=== PATIENT | male | born 1970 | race Caucasian/White ===

== ENCOUNTER 2017-01-24 09:30 | Inpatient (IN) | payer BC ==
[2017-02-06] MEDS ORDERED: FAMOTIDINE 20MG TABLET PO ONE (06:00)
[2017-02-06] MEDS ORDERED: CELECOXIB 100 MG CAPSULE PO ONE (06:00)
[2017-02-06] MEDS ORDERED: CEFAZOLIN 2 Gram 2 GM/50 ML BAG IVPB ONE (06:00)
[2017-02-06] MEDS ORDERED: ACETAMINOPHEN 1,000 MG/100 ML BTL IV ONE (06:00)
[2017-02-06] MEDS ORDERED: METOCLOPRAMIDE 10 MG TABLET PO ONE (06:00)
[2017-02-06] MEDS ORDERED: MECLIZINE 25 MG TABLET PO ONE (06:00)
[2017-02-06] MEDS ORDERED: TRAMADOL HCL 50 MG TABLET PO PRN ×2 (09:45)
[2017-02-06] MEDS ORDERED: DIPHENHYDRAMINE HCL 25 MG CAPSULE PO PRN (09:45)
[2017-02-06] MEDS ORDERED: OXYCODONE HCL 5 MG TABLET PO PRN (09:45)
[2017-02-06] MEDS ORDERED: ONDANSETRON HCL IV 4 MG/2 ML VIAL IVP PRN (09:45)
[2017-02-06] MEDS ORDERED: HYDROMORPHONE HCL 1 MG/ML CPJ IVP PRN (09:45)
[2017-02-06] MEDS ORDERED: METOCLOPRAMIDE HCL 10 MG/2 ML VIAL IVP PRN (09:45)
[2017-02-06] MEDS ORDERED: MAGNESIUM HYDROXIDE 30 ML UDC PO PRN (09:45)
[2017-02-06] MEDS ORDERED: AL HYDROX/MAG HYDROX 30ML UD PO PRN (09:45)
[2017-02-06] MEDS ORDERED: ZOLPIDEM TARTRATE 5 MG TABLET PO PRN (09:45)
[2017-02-06] MEDS ORDERED: SENNOSIDES/DOCUSATE SODIUM UD CAPSULE PO PRN (09:45)
[2017-02-06] MEDS: RINGERS SOLUTION,LACTATED 1,000 ML IV SCH (10:37)
[2017-02-06] MEDS ORDERED: TRANEXAMIC ACID 1,000 MG in 0.9 % SODIUM CHLORIDE 100ML 100 ML IVPB ONE (11:00)
[2017-02-06] MEDS: OXYCODONE HCL 5 MG TABLET PO PRN ×2 (11:39→20:22)
[2017-02-06] MEDS ORDERED: BUPIVACAINE LIPOSOME 266MG/20ML VIAL IV ONE (12:35)
[2017-02-06] MEDS ORDERED: BUPIVACAINE 0.25% W/EPI MPF 30ML VIAL IVP ONE (12:35)
[2017-02-06] MEDS ORDERED: HYDROMORPHONE HCL 2 MG/ML VIAL IV ONE ×2 (14:00)
[2017-02-06] MEDS ORDERED: PROPOFOL 10 MG/ML VIAL IV ONE (14:00)
[2017-02-06] MEDS ORDERED: LIDOCAINE 2% MDV (20MG/ML) 20ML VIAL IV ONE (14:00)
[2017-02-06] MEDS ORDERED: SUFENTANIL CITRATE 50 MCG/ML AMPUL IV ONE (14:00)
[2017-02-06] MEDS ORDERED: KETOROLAC 30 MG/ML VIAL IVP ONE (14:00)
[2017-02-06] MEDS ORDERED: ONDANSETRON HCL IV 4 MG/2 ML VIAL IVP ONE (14:00)
[2017-02-06] MEDS ORDERED: FENTANYL PF 100MCG/2ML VIAL IV ONE (14:00)
[2017-02-06] MEDS ORDERED: MIDAZOLAM HCL 2MG/2ML VIAL IV ONE (14:00)
[2017-02-06] MEDS ORDERED: FENTANYL PF 0.25MG/5ML AMPUL IV ONE (14:00)
[2017-02-06] MEDS ORDERED: SEVOFLURANE 250 ML INH ONE (14:00)
[2017-02-06] MEDS ORDERED: ROCURONIUM BROMIDE 50MG/5ML VIAL IV ONE (14:00)
--- NOTE | 2017-02-06 14:40 | Operative Note ---
DATE OF SURGERY: 02/06/2017 Surgeon: Lefty Toro DO PREOPERATIVE DIAGNOSIS: Primary osteoarthritis of the left knee. POSTOPERATIVE DIAGNOSIS: Primary osteoarthritis of the left knee. OPERATION: Left total knee arthroplasty. DESCRIPTION OF PROCEDURE: This 46-year-old male was taken to the operating room and placed in the supine position on the operating room table. Attempt at spinal anesthesia was performed but the department of anesthesia was unsuccessful and after general anesthetic had been administered, the left lower extremity was elevated. It was prepped with Hibiclens and draped in the usual sterile fashion. Exsanguinated and the tourniquet inflated to 300 mmHg. All scrub personnel wore personal isolation suits. An anterior longitudinal midline incision was made followed by a medial parapatellar arthrotomy incision. An intracondylar drill hole was made for the intramedullary alignment rashid, and 6-degree valgus 11 mm cut was made in the distal femur because of the patient's flexion contracture of approximately 10 degrees. The wafer of bone was removed. Sizing jig was affixed and a size 75 was seen to be the appropriate size. The 4-in-1 cutting block was then pinned in 3 degrees of external rotation and appropriate cuts were made. The wafers of bone were removed. We then directed our attention to the proximal tibia, and an extramedullary alignment guide was used to cut the proximal tibia referencing a 10 mm cut off the lateral tibial plateau. However, it was necessary for us to cut an additional 4 mm of bone due to the severe bone loss medially. This was removed. Remnants of the menisci and osteophytes were removed from the posterior aspect of the knee. The tibia was sized to a size 83, and a stem punch was used. We then thoroughly debrided the knee removing all pieces of bone and soft tissue. The patella was then cut and restored to anatomic height with a 37 x 8.6 mm patella. The trial components were then placed, and a 12 mm bearing was seen to be the appropriate size, which gave us excellent stability of the joint throughout the range of motion. The trial components were all then removed and the wound again copiously irrigated with pulse lavage, lactated Ringer solution. Exparel was injected into the posterior, medial, and lateral corners of the joint. All bony surfaces were dried. All components were cemented into place, and excess cement removed after the insertion of each component. Initially the tibial baseplate was placed followed by the tibial bearing, femoral component, and finally the patella. Once the cement had hardened, the knee was again taken through range of motion with excellent stability. The remainder of the Exparel was injected into periosteum and joint capsule of the proximal tibia and distal femur. A drain was placed through a separate stab incision. The arthrotomy incision was closed with a #2 Vicryl. The subcutaneous tissue was closed with 0 Vicryl and the skin was stapled. Polar Care was applied. The patient was taken to the recovery room in satisfactory condition. GROSS PATHOLOGY: This patient demonstrated very severe osteoarthritis, tricompartmental full-thickness defect was present. Significant amount of bone loss present on the medial tibial plateau. Large osteophytes removed as well. Final components inserted were a [employer] size 75 cruciate retaining femoral component, a size 83 tibial baseplate, a 12 mm anterior stabilized D1 bearing, and a 37 x 8.6 mm patella was used. ARNEL
[2017-02-06] MEDS: ACETAMINOPHEN 1,000 MG/100 ML BTL IV SCH ×2 (14:45→20:06)
--- NOTE | 2017-02-06 14:46 | Rehab Evaluation ---
Patient Information - Patient Information Diagnosis: L Knee OA Ordered Treatment: PT Evaluate and Treat Status: Initial Evaluation Surgery: Yes (L TKA) Date of Surgery: 02/06/17 History: Detail (Pt. reports history of bilateral knee arthritis. Pt. reports that he plans to have the right knee replaced in ~6 weeks time.) Past Med/Willian Hx Detail: Detail (Pt. has underwent 5 scopes on his right knee and 4 on the left. Pt. has neuropathy and HTN.) Past Medical/Surgical Hx: PAST MEDICAL/SURGICAL HISTORY Past Surgical History knee surgery PMH - Respiratory Hx Respiratory Disorders No PMH - Cardiovascular Hx Cardiovascular Disorders Yes Hx Hypertension Yes Exercise Tolerance Good PMH - Neuro Hx Neurological Disorders Yes Hx Neuropathy Yes: feet and legs PMH - GI Hx Gastrointestinal Disorders Yes Hx Weight Loss/Weight Gain Yes: 15 lb gain in last year Hx Cirrhosis Yes: from drinking years ago LVT back to normal PMH - Hx Genitourinary Disorders No PMH - Endocrine Hx Endocrine Disorders No PMH - Musculoskeletal Hx Musculoskeletal Disorders Yes Hx Arthritis Yes PMH - Psych Hx Psychiatric Problems No PMH - Hematology/Oncology Hx Hematology/Oncology No Disorders Premorbid Status: Detail (Slowly progressive worsening of sx.) Social History: Detail (Pt. lives in a two story home with the bedroom and bathroom located on the second floor. The pt. lives with his and kids who are able to provide support. The pt. has a single point cane and standard walker. The pt. has a standard tub, 5-6 steps leading into the home with hand rail on right side when ascending. 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 Pt. was left supine with call light available, B IPC, cryo LLE, CPM attached. Nursing was notified of pt.'s status.) Subjective Information - Subjective Information Per Patient (Pt. reported 7/10 pain at start of tx. Pt. denied nausea, SOB, and he could feel/move his feet.) Objective Data - Pain Pain Present: Yes Pain Intensity: 7 Pain Scale Used: Numeric (1 - 10) - Mental Status Patient Orientation: Oriented x3 - Visual Perception Appears within normal limits for therapeutic activities - ROM Other (CPM set at -10 degrees and 50 degrees. RLE was WFL all planes of movement. BUE WFL all planes of movement.) - Strength/Tone Within normal limits, Other (BUE 5/5 grossly. Left knee not tested for standardized strength grade due to surgery. RLE was 5/5 grossly, with increased pain during transfer secondary to arthritis.) - Coordination Appears within normal limits for therapeutic activities - Bed Mobility Needs Assist (Pt. required min asssit x1 with SLR attempt for LLE, otherwise I with bed mobility.) - Transfers Independent (Pt. was independent with sit to stand and stand to sit transfer.) - Balance Balance Sitting: Good Balance Standing: Fair (Pt. unable to bear more than 50% body weight onto the operative LE.) - Sensation Intact - Gait Detail (Not assessed.) - ADL's/IADL's Detail (Not assessed.) - Special Tests No Therapy Assessment - Therapy Assessment Detail (Pt. is expected to complete all inpatient PT goals and transition to home environment within 1-2 days.) Patient Education - Patient Education Teaching Topic: Disease Process, Equipment Use Response: Return Demonstration Teaching Method: Discussion Teaching Recipient: Patient Barriers To Learning: None Problem List - Problem List Physical Therapy Problem List: Detail (1) LE weakness 2) LE ROM restriction 3) Balance impairment 4) Assistance required with bed mobility) Goals - Goals Physical Therapy Goals: 1) Pt. will independently ambulate with standard walker for household distances without gait deviation. 2) Pt. will ascend and descend 5 steps independently with or without an AD. 3) Pt. will be independent with HEP. 4) Pt. will verbalize understanding of precautions. 5) Pt. will be independent with bed mobility and transfers. Prognosis - Prognosis Good (Pt. is expected to complete all inpatient PT goals and transition to OP PT.) Plan - Plan Physical Therapy Plan: Pt. will be seen 1-2x per day for inpatient therapy until all PT goals met for safe D/C to home environment.
[2017-02-06] MEDS: FONDAPARINUX 2.5 MG/0.5 ML SYR SQ SCH (16:31)
[2017-02-06] MEDS: CEFAZOLIN 2 Gram 2 GM/50 ML BAG IVPB SCH ×2 (16:32→22:27)
[2017-02-06] MEDS: LYRICA 75 MG PO SCH ×3 (17:18→21:51)
[2017-02-07] MEDS: ACETAMINOPHEN 1,000 MG/100 ML BTL IV SCH (00:50)
[2017-02-07] MEDS ORDERED: NALOXONE 0.4 MG/1 ML VIAL IVP ONE ×2 (01:30→06:51)
[2017-02-07 03:57] LABS: ALB/GLOB RATIO 1.4 (1.1-1.8); ALBUMIN 3.5 g/dL (4.0-5.0); ALKALINE PHOSPHATASE 73 U/L (40-129); ALT/SGPT 14 U/L (<41); AST/SGOT 25 U/L (10.0-50.0); BLOOD UREA NITROGEN 12 mg/dL (6-20); CREATININE 0.6 mg/dL (0.7-1.2); EST GLOMERULAR FILTRATION RATE > 60 mL/min; GLUCOSE,RANDOM 107 mg/dL (74-109)
[2017-02-07] MEDS: RINGERS SOLUTION,LACTATED 1,000 ML IV SCH (06:33)
[2017-02-07] MEDS: LYRICA 75 MG PO SCH ×3 (06:34→17:07)
[2017-02-07] MEDS: CEFAZOLIN 2 Gram 2 GM/50 ML BAG IVPB SCH (09:42)
[2017-02-07] MEDS ORDERED: HYDROCODONE/APAP 7.5/325MG TABLET PO PRN ×2 (09:45)
[2017-02-07] MEDS ORDERED: ACETAMINOPHEN 325 MG TAB PO PRN (09:45)
[2017-02-07] MEDS ORDERED: OXYCODONE/APAP 7.5MG/325MG TABLET PO PRN ×2 (09:45)
[2017-02-07] MEDS ORDERED: CELECOXIB 100 MG CAPSULE PO SCH (10:00)
[2017-02-07] MEDS ORDERED: ZYRTEC 10 MG PO SCH (10:00)
[2017-02-07] MEDS ORDERED: METOPROLOL TART 25 MG TABLET PO SCH (10:00)
--- NOTE | 2017-02-07 10:37 | Physical Therapy Tx Note ---
Physical Therapy Tx Note - Treatment Note Tolerated: Poor (Pt. declined PT services due to 10/10 pain. Pt. wishes to be seen during P.M. session for gait training.) Total Time Spent With Patient: 5 Physical Therapy Problem List: Detail (1) LE weakness 2) LE ROM restriction 3) Balance impairment 4) Assistance required with bed mobility) Physical Therapy Goals: 1) Pt. will independently ambulate with standard walker for household distances without gait deviation. 2) Pt. will ascend and descend 5 steps independently with or without an AD. 3) Pt. will be independent with HEP. 4) Pt. will verbalize understanding of precautions. 5) Pt. will be independent with bed mobility and transfers. Physical Therapy Plan: Pt. will be seen 1-2x per day for inpatient therapy until all PT goals met for safe D/C to home environment.
--- NOTE | 2017-02-07 10:49 | Rehab Evaluation ---
Patient Information - Patient Information Diagnosis: L Knee OA Ordered Treatment: OT Evaluate and Treat Status: Initial Evaluation Surgery: Yes (L TKA) Date of Surgery: 02/06/17 History: Detail (Pt. reports history of bilateral knee arthritis. Pt. reports that he plans to have the right knee replaced in ~6 weeks time.) Past Med/Willian Hx Detail: Detail (Pt. has underwent 5 scopes on his right knee and 4 on the left. Pt. has neuropathy and HTN.) Past Medical/Surgical Hx: PAST MEDICAL/SURGICAL HISTORY Past Surgical History knee surgery PMH - Respiratory Hx Respiratory Disorders No PMH - Cardiovascular Hx Cardiovascular Disorders Yes Hx Hypertension Yes Exercise Tolerance Good PMH - Neuro Hx Neurological Disorders Yes Hx Neuropathy Yes: feet and legs PMH - GI Hx Gastrointestinal Disorders Yes Hx Weight Loss/Weight Gain Yes: 15 lb gain in last year Hx Cirrhosis Yes: from drinking years ago LVT back to normal PMH - Hx Genitourinary Disorders No PMH - Endocrine Hx Endocrine Disorders No PMH - Musculoskeletal Hx Musculoskeletal Disorders Yes Hx Arthritis Yes PMH - Psych Hx Psychiatric Problems No PMH - Hematology/Oncology Hx Hematology/Oncology No Disorders Premorbid Status: Detail (Slowly progressive worsening of sx. Pt independent w/ ADLs [employer].) Social History: Detail (Pt. lives in a two story home with the bedroom and bathroom located on the second floor. The pt. lives with his and kids who are able to provide support. The pt. has a single point cane and standard walker. The pt. has a standard tub, 5-6 steps leading into the home with hand rail on right side when ascending. 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 Unable to give birthdate ( said it was [birth year] and repeated this same date when prompted a second time), unable to give correct age, and when asked where he was, pt able to say "hospital" but thought he was in the "[facility].") - ROM Within normal limits (BUE's) - Strength/Tone Within normal limits (BUE's) - Coordination Appears within normal limits for therapeutic activities - ADL's/IADL's Detail (Discussed bathing/showering wrapping techniques to prevent water/soap saturation on incision for infection purposes. Discussed LB drsg techniques and equipment available to help with this if pt unable to reach feet at first at home. Techniques also discussed with pt's mother for reinforcement. Pt completed LB drsg w/ min A and v/c's for modified drsg technique. Pt states that if he needs help drsg while at home he will have his son help him.) Therapy Assessment - Therapy Assessment Detail (Pt not fully oriented due to self-medicating during the night. Asking for pain medication several times during evaluation. He has a good support system that is willing to assist patient with ADLs if needed. OT will continue to monitor pt during his stay here as well as his ADL status. Pt able to don pants w/ min A w/ modified technique.) Problem List - Problem List Physical Therapy Problem List: Detail (1) LE weakness 2) LE ROM restriction 3) Balance impairment 4) Assistance required with bed mobility) Goals - Goals Physical Therapy Goals: 1) Pt. will independently ambulate with standard walker for household distances without gait deviation. 2) Pt. will ascend and descend 5 steps independently with or without an AD. 3) Pt. will be independent with HEP. 4) Pt. will verbalize understanding of precautions. 5) Pt. will be independent with bed mobility and transfers. Prognosis - Prognosis Good Plan - Plan Physical Therapy Plan: Pt. will be seen 1-2x per day for inpatient therapy until all PT goals met for safe D/C to home environment. Occupational Therapy Plan: OT will continue to monitor patient and his ADL status. Anticipate that once pain is controlled, pt will not require further inpatient OT services. Pt will use family to assist if needed w/ ADLs vs use of equipment while at home.
--- NOTE | 2017-02-07 15:02 | Physical Therapy Tx Note ---
Physical Therapy Tx Note - Treatment Note Tolerated: Good (Pt. reported 7/10 pain at start and finish of tx. Pt. denied SOB, nausea.) Total Time Spent With Patient: 25 Physical Therapy Tx Note: Detail (Pt. ambulated with CGA for 80 feet using standard walker. Pt. was I with bed mobility, but required hooking of operative leg/use of UE to swing the operative leg to seated position due to inability to perform SLR. Pt. required verbal cueing to appropriately perform sit<->stand transfer, but expressed understanding following instruction. Pt. verbalized understanding of precautions and signs of infection/LE positioning in bed. Pt. ascended and descended 6 steps with front wheeled walker and CGA.) Physical Therapy Problem List: Detail (1) LE weakness 2) LE ROM restriction 3) Balance impairment 4) Assistance required with bed mobility) Physical Therapy Goals: 1) Pt. will independently ambulate with standard walker for household distances without gait deviation. 2) Pt. will ascend and descend 5 steps independently with or without an AD. 3) Pt. will be independent with HEP. 4) Pt. will verbalize understanding of precautions. 5) Pt. will be independent with bed mobility and transfers. Prognosis: Good (Pt. is appropriate for D/C from inpatient PT and return to ranch style home environment.) Physical Therapy Plan: Pt. is appropriate for D/C from inpatient PT given completion of all goals.
[2017-02-07] MEDS: FONDAPARINUX 2.5 MG/0.5 ML SYR SQ SCH (16:40)
[2017-02-07] MEDS ORDERED: FENTANYL 50MCG PATCH TD SCH (17:00)
--- NOTE | 2017-02-10 12:40 | Discharge Summary ---
DATE OF ADMISSION: 02/06/2017 DATE OF DISCHARGE: 02/07/2017 ADMITTING DIAGNOSIS: Osteoarthritis of the left knee. DISCHARGE DIAGNOSIS: Osteoarthritis of the left knee. OPERATIVE PROCEDURE: Elective left total knee arthroplasty. DESCRIPTION: This 46-year-old male was admitted to the hospital for elective total knee arthroplasty and tolerated the operative procedure well. We had somewhat of a difficult time controlling his pain following the surgery and apparently he was taking extra patches of fentanyl from his own personal stock in addition to being given the intravenous and oral pain medications here in the hospital. The patient was given Narcan and the symptoms were largely taken care of. Subsequently, he was started on Brandeis and seemed to be controlled satisfactorily on that medication. The patient will be discharged home with outpatient physical therapy. He will wear his MONTSE hose during the day and remove them at night. He was given a prescription for 80 Brandeis 7.5 mg/325 mg to take 1-2 every 6 hours as necessary for pain. He will take aspirin 325 mg b.i.d. Routine wound care instructions were given. He will follow up in the clinic in 2 weeks should he have any problems prior to being seen. He was instructed to call my office. ARNEL
== END 2017-02-07 16:45 | disposition home or self-care (01) | DRG 470 ==
LOC: MEDSURG 02-06 05:24
PROVIDERS: ADMIT Orthopaedic Surgery; ATTEND Orthopaedic Surgery
PROC: 0SRD0J9 Replacement of Left Knee Joint with Synthetic Substitute, Cemented, Open Approach (ICD-10-PCS; principal; 2017-02-06 07:30)
DX: M17.12 Unilateral primary osteoarthritis, left knee (principal); I10 Essential (primary) hypertension
CPT/HCPCS: 80053; 94760; 94762; 97116; 97165; J1170; J1885; J2310; J2405; J7120

== ENCOUNTER 2018-04-04 22:43 | Observation (INO) | payer BC ==
[2018-04-04] MEDS ORDERED: SODIUM CHLORIDE 0.9% 500 ML IV ONE (23:01)
--- NOTE | 2018-04-04 23:14 | Emergency Department Record ---
History of Present Illness - General Chief Complaint: Overdose Stated Complaint: ALTERED MENTAL STATE Time Seen by Provider: 04/04/18 22:52 Source: Patient, Family Mode of Arrival: Ambulatory Limitations: No limitations - History of Present Illness Initial Comments: The patient is here after being brought to the ER by his and brother due to being found at home intoxicated and possibly having taken extra meds. Per his he does drink alcohol in excess and she thinks he may have taken to many of his Lyrica and possibly Ambien. The patient was hallucinating at home prior to transport to the ER. There has been no reported suicidal or homicidal ideation, self harm actions, or any recent depression. Presently the patient denies any thoughts of hurting himself or taking any extra meds tonight. The patient does have a hx of prescription drug abuse per his . About a month ago the patient took to many Ambien and was confused and hallucinating similar to this episode. The patient's states she first noticed him confused about 4pm today. MD Complaint: Accidental overdose, Other Onset/Timin -: Hour(s) - Tal Coma Scale Eye Response: (4) Open spontaneously Motor Response: (6) Obeys commands Verbal Response: (4) Confused conversation [place] Total: 14 Substance Ingested: states she is unsure of what he took - Detail Context: Accidental Overdose: Was drinking then took pills Context: Intentional Overdose: Drug/ETOH problems Treatments Prior to Arrival: None - Related Data Home Medications Medication Instructions Recorded Confirmed Last Taken Ergocalciferol (Vitamin D2) 50,000 iu PO WE 04/04/18 04/04/18 Unknown [Vitamin D2] Metoprolol Tartrate 25 mg PO BID 04/04/18 04/04/18 Unknown Pregabalin [Lyrica] 150 mg PO BID 04/04/18 04/04/18 Unknown Zolpidem Tartrate 10 mg PO DAILY 04/04/18 04/04/18 Unknown Allergies Allergy/AdvReac Type Severity Reaction Status Date / Time ibuprofen [From Motrin] AdvReac NAUSEA AND Verified 04/04/18 22:52 VOMITING Travel Screening - Travel/Exposure Within Last 30 Days Have you traveled within the last 30 days?: No - Travel/Exposure Within Last Year Have you traveled outside the [place] in the last year?: No - Additonal Travel Details Have you been exposed to anyone with a communicable illness?: No - Travel Symptoms Symptom Screening: None Review of Systems Constitutional: Denies: Chills, Fever Eyes: Denies: Eye discharge ENT: Denies: Congestion Respiratory: Denies: Cough Cardiovascular: Denies: Arrhythmia, Chest pain Endocrine: Denies: Fatigue Gastrointestinal: Denies: Abdominal pain Genitourinary: Denies: Dysuria Musculoskeletal: Denies: Arthralgia Past Medical History - SOCIAL HISTORY Smoking Status: Never smoker Alcohol Use: Occasional Alcohol Use Comment: none today Drug Use: Occasional Drug Use Detail:: Prescription drug abuse - RESPIRATORY Hx Respiratory Disorders: No - CARDIOVASCULAR Hx Cardio Disorders: Yes Hx Hypertension: Yes - NEURO Hx Neuro Disorders: Yes Hx Neuropathy: Yes (feet and legs) - GI Hx GI Disorders: Yes Hx Wt Loss/Wt Gain: Yes (15 lb gain in last year) Hx Cirrhosis: Yes (from drinking years ago LVT back to normal) - Hx Genitourinary Disorders: No - ENDOCRINE Hx Endocrine Disorders: No - MUSCULOSKELETAL Hx Musculoskeletal Disorders: Yes Hx Arthritis: Yes - PSYCH Hx Psych Problems: No - HEMATOLOGY/ONCOLOGY Hx Hematology/Oncology Disorders: No Family Medical History Any Significant Family History?: No Hx Diabetes: Father Hx HTN: Father Hx Resp Disorders: Mother Physical Exam - General General Appearance: Alert, Cooperative, No acute distress (The patient is awake , cooperative, obviously intoxicated with mild slurred speech. ) - Head Head exam: Atraumatic, Normocephalic - Eye Eye exam: Normal appearance, PERRL, EOMI - ENT Throat exam: Normal inspection. negative: Tonsillar erythema, Tonsillar exudate - Neck Neck exam: Normal inspection, Full ROM. negative: Meningismus (The neck is very supple.), Tenderness - Respiratory Respiratory exam: Normal lung sounds bilaterally. negative: Respiratory distress - Cardiovascular Cardiovascular Exam: Regular rate, Normal rhythm, Normal heart sounds - GI/Abdominal GI/Abdominal exam: Soft, Normal bowel sounds. negative: Tenderness - Extremities Extremities exam: Normal inspection, Full ROM, Normal capillary refill. negative: Tenderness - Neurological Neurological exam: Alert, Normal gait. negative: Abnormal gait, Altered, Motor sensory deficit, Oriented X3 (The patient is confused as to the name of the hospital but is oriented to day, date, year, and his birthday.) - Psychiatric Psychiatric exam: negative: Anxious Course Vital Signs 04/04/18 22:45 Temperature 97.8 F Pulse Rate [ 103 H Pulse Ox Probe] Respiratory 24 Rate Blood Pressure 165/112 [Left Arm] Pulse Ox 95 - Reevaluation(s) Reevaluation #1: The patient is resting comfortably with no complaints. He denies any WILDER, visual changes, CP, SOB or AP. He is still intermittently confused and thinks he should be out deer hunting. Due to that fact we will order a head CT and EKG to be sure there are no toxic effects of medicines we could be missing presently. 04/05/18 00:11 Reevaluation #2: The patient is resting comfortably with no complaints. He denies any WILDER, CP, neck pain or visual changes. The patient is still confused about recent events and now is not able to tell me the name of the hospital but he is oriented to name, date and year. He has no signs of any infections due to the fact he has no fever, WILDER, neck pain or vomiting. I do believe the patient took to many of his Ambien and will need to be monitored overnight until it wears off. We will admit him to the hospital overnight for monitoring and observation. 04/05/18 00:46 Medical Decision Making - Data Complexity MDM Data: Labs Ordered and/or Reviewed, X-Ray Ordered and/or Reviewed, EKG Ordered and/or Reviewed - Lab Data Result diagrams: 04/04/18 23:00 04/04/18 23:00 - EKG Data -: EKG Interpreted by Me EKG: No Acute Changes, Normal EKG, Unchanged From Previous - Radiology Data Radiology results: Report reviewed (Head CT: Neg for any acute changes.), Image reviewed (CXR: Neg) Disposition Disposition: Admit Clinical Impression: Confusion caused by a drug Disposition: Still a Patient at [facility] Decision to Admit: Admit from ER Decision to Admit Date: 04/05/18 Decision to Admit Time: 00:50 Accepting Physician: Lay Time Discussed w/Accepting Physician: 00:50 Condition: (2) Stable Time of Disposition: 00:50 Quality - Quality Measures Quality Measures: N/A - Blood Pressure Screening View Details: Yes Does Patient Have Any of the Following: Active Dx of HTN Blood Pressure Classification: Hypertensive Reading Systolic Measurement: 166 Diastolic Measurement: 105 Screening for High Blood Pressure: Patient Exclusion, Hx of HTN [[id number]]
[2018-04-04 23:15] LABS: URINE APPEARANCE CLEAR; URINE BILIRUBIN NEGATIVE (NEGATIVE); URINE BLOOD NEGATIVE (NEGATIVE); URINE COLOR YELLOW; URINE GLUCOSE (UA) NEGATIVE (NEGATIVE); URINE KETONE NEGATIVE (NEGATIVE); URINE LEUKOCYTE ESTERASE NEGATIVE (NEGATIVE); URINE NITRITE NEGATIVE (NEGATIVE); URINE PROTEIN NEGATIVE (NEGATIVE); URINE UROBILINOGEN 0.2 E.U./dL (0.20 - 1.00)
[2018-04-04 23:18] LABS: AMPHETAMINE SCREEN URINE NOT DETECTED; BARBITURATE SCREEN URINE NOT DETECTED; BENZODIAZEPINE SCREEN URINE NOT DETECTED; COCAINE SCREEN URINE NOT DETECTED; METHADONE SCREEN URINE NOT DETECTED; METHAMPHETAMINE SCREEN NOT DETECTED; OPIATE SCREEN URINE NOT DETECTED; OXYCODONE SCREEN URINE NOT DETECTED; PHENCYCLIDINE SCREEN URINE NOT DETECTED; PROPOXYPHENE SCREEN URINE NOT DETECTED; THC SCREEN URINE NOT DETECTED; TRICYCLIC ANTIDEPRESSANT SCRN NOT DETECTED
[2018-04-04 23:20] LABS: BASO % 0.3 % (0-6); EOS % 0.5 % (0-6); GRAN % 67.5 % (47-80); LYMPH % 24.2 % (16-45); MEAN CELL VOLUME 84.2 fl (81-97); MEAN CORPUSCULAR HEMOGLOBIN 30.8 pg (27-33); MEAN CORPUSCULAR HGB CONC 36.6 g/dl (32-36); MEAN PLATELET VOLUME 11.3 fl (7.4-10.4); MONO % 7.5 % (0-9); PLATELET COUNT 144 K/uL (130-400); RED BLOOD COUNT 4.87 M/uL (4.40-5.70); RED CELL DISTRIBUTION WIDTH 14.1 % (11.5-14.5)
[2018-04-04 23:24] LABS: BLOOD UREA NITROGEN 14 mg/dL (6-20); EST GLOMERULAR FILTRATION RATE > 60 mL/min; TOTAL PROTEIN 6.9 g/dL (6.6-8.7)
[2018-04-04 23:26] LABS: GLUCOSE,RANDOM 116 mg/dL (74-109)
[2018-04-04 23:29] LABS: ACETAMINOPHEN < 5.0 ug/mL (10.0-30.0); ALBUMIN 4.4 g/dL (4.0-5.0); ALKALINE PHOSPHATASE 121 U/L (40-129); ALT/SGPT 32 U/L (<41); AST/SGOT 33 U/L (10.0-50.0); BILIRUBIN,DIRECT < 0.2 mg/dL (0-0.3); SALICYLATE < 0.3 mg/dL (2.8-20)
[2018-04-05] MEDS ORDERED: METOPROLOL TART 25 MG TABLET PO SCH (10:00)
--- NOTE | 2018-04-05 10:12 | Discharge Note ---
VTE H&P Assessment - Risk for VTE Risk for VTE: No Risk Level: Very Low Risk Assessment Date: 04/05/18 Risk Assessment Time: 10:09 VTE Orders Placed or Will Be Placed: No VTE Reason for No Prophylaxis: Not Indicated Discharge Medications - Discharge Medications Home Medications: Ambulatory Orders Ergocalciferol (Vitamin D2) [Vitamin D2] 50,000 iu PO WE 04/04/18 [Last Taken Unknown] Metoprolol Tartrate 25 mg PO BID 04/04/18 [Last Taken Unknown] Pregabalin [Lyrica] 150 mg PO BID 04/04/18 [Last Taken Unknown] Zolpidem Tartrate 10 mg PO DAILY 04/04/18 [Last Taken Unknown] Discharge Note - Date Date of Discharge Note: 04/05/18 Condition: (2) Stable Additional Instructions: only take one ambien per day follow up with Dr Mlies in three days patient needs substance abuse counciling suggestion to switch to trazodone for sleep but they need to talk to there first Forms: Patient Portal Access
--- NOTE | 2018-04-06 07:22 | RADIOLOGY REPORT ---
EXAM: CHEST, TWO VIEWS HISTORY: DIFFICULTY IN BREATHING. TECHNIQUE: Frontal and lateral views of the chest were performed. Comparison: 05/10/09. FINDINGS: The heart size is normal. No pulmonary vascular congestion. No infiltrate or pleural effusion. The osseous structures are normal. IMPRESSION: NO ACUTE DISEASE PROCESS. JOB NUMBER: [id number] MTDD
--- NOTE | 2018-04-06 07:25 | CT SCAN REPORT ---
EXAM: CT OF THE BRAIN WITHOUT CONTRAST HISTORY: MENTAL STATUS CHANGE. TECHNIQUE: Sequential axial images were obtained from the foramen magnum to the vertex without contrast administration. FINDINGS: The brain volume is normal. No large territorial infarct, hemorrhage , mass effect, or midline shift. No extraaxial fluid collection. The orbits, paranasal sinuses, and mastoid air cells are normal. There are intracranial vascular calcifications. IMPRESSION: NO ACUTE INTRACRANIAL ABNORMALITY IS APPRECIATED. JOB NUMBER: [id number] MTDD
--- NOTE | 2018-04-06 10:10 | History and Physical Report ---
DATE OF ADMISSION: 04/05/2018. CHIEF COMPLAINT: Altered mental status. HISTORY OF PRESENT ILLNESS: This patient presented to the emergency department with his and brother. He was found at home acting inappropriately and intoxicated, possibly having extra medication. He has overdosed on Ambien before. The states he does drink alcohol in excess, and he may have taken more of his Lyrica and Ambien than as prescribed. The patient was hallucinating at home prior to transport to the emergency department. There is no report of suicidal or homicidal ideation, self-harm actions, or any recent depression. Presently, the patient denies any thoughts of hurting himself or taking any extra meds tonight. The patient does have a history of prescription drug abuse, per his . About a month ago, the patient took too many Ambien and was confused and hallucinating, similar to this episode. The patient's states she noticed him confused about 4:00 p.m. on the day of admission. He was evaluated in the emergency department by Dr. Jimenes about 10:30 p.m. and admitted to the hospital for a drug overdose. 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 His liver testing is back to normal, according to the patient and his . He has gained 15 pounds in the last year. He has chronic back pain, arthritis. He admits to occasional alcohol use at this time. PAST SURGICAL HISTORY: Knee surgery, finger surgery, and spinal stimulator. CURRENT MEDICATIONS: 1. Metoprolol tartrate 25 mg b.i.d. 2. Lyrica 150 mg b.i.d. 3. Vitamin D 50,000 units weekly. 4. Ambien 20 mg a day. He takes a double dose of Ambien because he states when he takes 10 mg of Ambien, he falls asleep but then wakes up an hour later and cannot get back to sleep. ALLERGIES: Ibuprofen. SOCIAL HISTORY: Patient has never smoked. He has used alcohol heavily in the past but only occasionally now. He has mckeon drug use, problems with prescription drug abuse. Lyrica was one of the drugs that caused him problems in the past, and also the Ambien. FAMILY HISTORY: Father has diabetes and hypertension. Mother has respiratory disorder. SYSTEMS REVIEW: HEENT: No upper respiratory infection symptoms, cough, cold, or congestion. Cardiovascular: No chest pain, palpitations, or arrhythmias. Respiratory: No cough, cold, or congestion. Gastrointestinal: No nausea, vomiting, diarrhea, black stools, or bloody stools. Genitourinary: No dysuria, hematuria, or frequency or burning on urination. Musculoskeletal: No joint or bone abnormalities. Neurologic: No CVA, paralysis, or paresthesias. Endocrine: No diabetes or thyroid problems. Integument: No rashes, ulcers, changes in moles or yellow skin. PHYSICAL EXAMINATION: VITAL SIGNS: Height: 6 feet 2 inches. Weight: 287 pounds. Temperature: 97.6. Pulse: 84. Blood Pressure: 200/83. Respiratory Rate: 16. Pulse Oximetry: 95% on room air. On my evaluation, his temperature was 97.6. Pulse: 81. Blood Pressure: 166/88. Respiratory Rate: 24. Pulse Oximetry: 96% on room air, and then his vitals on discharge were: Temperature: 98.7. Pulse: 72. Blood Pressure: 174/86. Pulse: 115. Respiratory Rate: 24. Pulse Oximetry: 97% on room air. He has not taken his blood pressure medications. HEENT: Pupils equal, round, and reactive to light and accommodation. Extraocular muscles intact. Throat is clear. Nose is clear. Tympanic membranes are ch. NECK: Supple. No jugular venous distention. No hepatojugular reflex. No carotid bruits. Thyroid is smooth. LUNGS: Clear to auscultation and percussion. HEART: Regular rate and rhythm without murmurs, clicks, rubs, or gallops. ABDOMEN: Soft, nontender. No hepatosplenomegaly. No masses. Bowel sounds active. No bruits. EXTREMITIES: No pitting edema, no cyanosis, no clubbing. Full range of motion. Peripheral pulses good. BREASTS: Normal male breasts. GYNECOLOGICAL/RECTAL: Deferred. GENITALIA: Deferred. NEUROLOGIC: Cranial nerves II through XII intact. No gross defects. Sensation is normal. Strength is normal. Deep tendon reflexes equal bilaterally. Babinski is negative. MENTAL STATUS: Alert and oriented x3. IMPRESSION: 1. Overdose of Ambien and Lyrica. 2. Hypertension. 3. Insomnia. 4. Neuropathy of the legs. 5. Hallucinations from overdose of Ambien and Lyrica. PLAN: Evaluate the patient. Discussion of substance abuse with the patient and , and recommend only taking 1 Ambien a day, and then possibly switching over to trazodone, which is a nonaddictive sleep medication. MTDD
--- NOTE | 2018-04-06 10:10 | Discharge Summary ---
DATE OF ADMISSION: DATE OF DISCHARGE: Attending physician: Hunter Chun DO DISCHARGE DIAGNOSES: 1. Overdose of Ambien and Lyrica. 2. Hypertension. 3. Insomnia. 4. Neuropathy of the legs. 5. Substance abuse. REASON FOR HOSPITALIZATION: This 48-year-old male possibly overdosed on Lyrica and Ambien, brought in by the and his brother, acting intoxicated, hallucinating. Seen by Dr. Jimenes in the emergency department and admitted to the hospital for detoxification and further evaluation. At my evaluation he was back to his baseline, he was acting appropriately, his said he was acting appropriately and he is no longer hallucinating. He denies taking any extra medications, however his states he has done this in the past. SIGNIFICANT FINDINGS: Laboratory: WBC was 6000, hemoglobin was 15, potassium 3.8, sodium is 138, chloride is 99, BUN is 14, creatinine is 1.0, glucose is 116. Liver enzymes are normal. Urine negative. His drug screen was negative. Alcohol was 0.01, essentially negative. Tylenol was negative, aspirin was negative. He had a CT of the head which was negative, according to Dr. Jimenes. Chest x-ray was also no acute changes. THERAPY PROVIDED: The patient was given IV fluids and neuro checks and he is back to his baseline. I discussed substance abuse with the patient and recommended that he follow up with the family doctor to get set up with substance abuse. His family doctor is Dr. Debbie Miles in [place]. We will give him the phone number for substance abuse. At this point he denies having a problem. The patient denies being suicidal, homicidal, or harmful to himself. DISCHARGE INSTRUCTIONS: 1. Follow up with Dr. Debbie Miles in [place] in one week. 2. Continue his home medications of Vitamin D3 50,000 units once a week. 3. Metoprolol tartrate 25 mg b.i.d. 4. Lyrica 150 mg b.i.d. 5. Decrease the Ambien to 10 mg daily. 6. Talk to his family doctor about switching over to Trazodone or a non-dependency causing medication. DISCHARGE DIAGNOSES: 1. Overdose of Ambien and Lyrica. 2. Hypertension. 3. Insomnia. 4. Neuropathy of his legs. PLAN: 1. Follow up with Dr. Debbie Miles in 1 week. 2. Decrease the Ambien to 10 mg a day. 3. Keep the Lyrica the same. 4. Substance abuse counseling. The phone number will be given to the patient. ARNEL
== END 2018-04-05 10:30 | disposition home or self-care (01) ==
LOC: ER 22:43 → MEDSURG 04-05 01:13
PROVIDERS: ADMIT Emergency Medicine; ATTEND Emergency Medicine
DX: T42.6X4A Poisoning by other antiepileptic and sedative-hypnotic drugs, undetermined, initial encounter (principal); R41.0 Disorientation, unspecified; F10.10 Alcohol abuse, uncomplicated; I10 Essential (primary) hypertension; G62.9 Polyneuropathy, unspecified; M19.90 Unspecified osteoarthritis, unspecified site; F19.10 Other psychoactive substance abuse, uncomplicated; G47.00 Insomnia, unspecified
CPT/HCPCS: 99285 ×2; 96360; 85025; 80076; 80048; 81003; 80305; 71046; 70450; 93005; 93010; 94760; G0378; G0480 ×3; 80320; 80329; 99222